=== PATIENT | male | born 1985 | race Caucasian/White ===

== ENCOUNTER 2022-07-19 10:58 | Day surgery (SDC) | payer OTHER ==
[2022-07-13 17:44] VITALS: BMI 29.5
[~2022-07-19 10:58] MED LIST: ATROPINE SULFATE 0.4 MG/ML 1 ML VIAL IM ONE
[2022-07-19] MEDS ORDERED: ONDANSETRON 4 MG/2 ML VIAL IVP ONE (11:26)
[2022-07-19] MEDS ORDERED: LACTATED RINGERS 1,000 ML IV SCH (11:26)
[2022-07-19] MEDS ORDERED: DEXAMETHASONE SOD PHOSPHATE 4 MG/ML 1 ML VIAL IV ONE (11:26)
[2022-07-19] MEDS ORDERED: MIDAZOLAM 2 MG/2 ML VIAL IV PRN (11:26)
[2022-07-19] MEDS ORDERED: HYDROmorphone 0.5 MG/0.5 ML SYRINGE IVP PRN (11:26)
[2022-07-19] MEDS ORDERED: LIDOCAINE 1% (10MG/ML) FOR IV START INTRADERMA PRN (11:26)
[2022-07-19] MEDS: LACTATED RINGERS 1,000 ML IV SCH ×2 (11:45→12:01)
[2022-07-19 11:47] VITALS: TEMP 97.3
[2022-07-19] MEDS ORDERED: PROPOFOL 10 MG/ML 20 ML VIAL IV ONE (12:03)
[2022-07-19] MEDS ORDERED: MIDAZOLAM 2 MG/2 ML VIAL ONE (12:03)
[2022-07-19] MEDS ORDERED: fentaNYL (PF) 50 MCG/ML 2 ML AMP ONE (12:03)
[2022-07-19] MEDS ORDERED: KETAMINE 10 MG/ML 20 ML VIAL ONE (12:03)
[2022-07-19] MEDS ORDERED: LIDOCAINE 2% INJ 20 MG/ML INTRATRACH ONE (12:11)
[2022-07-19 12:49] VITALS: BP 124/79; PULSE 84; RESP 20
--- NOTE | 2022-07-19 12:51 | PCN ---
PROCEDURE NOTE PROCEDURES PERFORMED: Bronchoscopy, airway examination, therapeutic lavage, BAL right middle lobe. PREOPERATIVE DIAGNOSIS: Chronic cough, rule out infection, asthma. POSTOPERATIVE DIAGNOSIS: Chronic cough, rule out infection, asthma. ANESTHESIA: Provided general anesthesia. DESCRIPTION OF PROCEDURE: There was informed consent and universal timeout. The patient's procedure took place in room #1 endoscopy. After the patient was adequately sedated and being fully monitored, the bronchoscope was inserted transorally. I could not pass the scope transnasally. The scope passed easily through the oropharynx into the hypopharynx. The hypopharyngeal structures appeared normal including anterior commissure, true cords, false cords, arytenoids, piriform sinuses, right and left vallecula, and epiglottis. The glottic opening was topicalized and the bronchoscope was pushed through the glottic opening into the trachea. The trachea itself was normal. There was no mass, tumor, or secretions. Tracheal mel was sharp. The right and left mainstem were topicalized. The right upper lobe and its 3 segments, right middle lobe and its 2 segments, right lower lobe and its 5 segments, the left upper lobe proper and its 2 segments, lingula and its 2 segments and left lower lobe and its 4 segments all had similar findings of diffuse severe bronchitis, with hyperemia and erythema of the airways. There was vascular engorgement. Note, there was no definitive mass or tumor. There were some secretions noted throughout. They were thin and frothy. The bronchoscope was then wedged into the right middle lobe. BAL took place. 30 mL of fluid was recovered. It will be sent for analysis. The patient tolerated the procedure well. He was stable throughout the procedure. Again, there were no complications and the patient will be recovered. The patient will follow up with me in the office. MMODL / IJN: [id number] /
[2022-07-19 19:11] LABS: Appearance,BF Slightly Cloudy
== END 2022-07-19 13:30 | disposition home or self-care (01) ==
LOC: ORWHC2ENDO 10:58
PROVIDERS: ATTEND Internal Medicine Critical Care Medicine
DX: J98.4 Other disorders of lung (principal); J45.909 Unspecified asthma, uncomplicated; Z79.51 Long term (current) use of inhaled steroids; G43.909 Migraine, unspecified, not intractable, without status migrainosus; Z88.0 Allergy status to penicillin; Z82.49 Family history of ischemic heart disease and other diseases of the circulatory system; Z82.5 Family history of asthma and other chronic lower respiratory diseases; Z82.3 Family history of stroke
CPT/HCPCS: 88108; 88305; 89050; 87252; 87070; 87205; 87116; 87102; 87206; 31624; J2001; J2250; J3010; J2704; 87496; 87498; 87502; 87529; 87634; 87798